=== PATIENT | female | born 1990 | race Caucasian/White ===

== ENCOUNTER 2020-05-22 16:07 | Emergency (ER) | payer OTHER ==
[~2020-05-22] VITALS: Ht 160 cm; Wt 56.8 kg
[2020-05-22 16:08] VITALS: BP 148/98
[2020-05-22 16:55] LABS: URINE HCG NEGATIVE (NEG)
[2020-05-22 17:03] LABS: URINE AMPHETAMINE SCREEN POSITIVE (Neg); URINE BARBITUATE SCREEN NEGATIVE (Neg); URINE BENZODIAZEPINES SCREEN NEGATIVE (Neg); URINE CANNABINOID SCREEN POSITIVE (Neg); URINE COCAINE SCREEN NEGATIVE (Neg); URINE METHADONE SCREEN NEGATIVE (Neg); URINE OPIATE SCREEN POSITIVE (Neg); URINE PHENCYCLIDINE SCREEN NEGATIVE (Neg)
== END 2020-05-22 17:53 | disposition home or self-care (01) ==
LOC: ER 16:08
DX: T40.1X1A Poisoning by heroin, accidental (unintentional), initial encounter (principal); F19.10 Other psychoactive substance abuse, uncomplicated; Z72.89 Other problems related to lifestyle; Z59.0 Homelessness; Z88.5 Allergy status to narcotic agent; Y92.89 Other specified places as the place of occurrence of the external cause
CPT/HCPCS: 80305; 81025; 93005; 99284

== ENCOUNTER 2021-04-23 10:36 | Emergency (ER) | payer SELFPAY ==
[~2021-04-23] VITALS: Ht 162.6 cm; Wt 65.0 kg
[2021-04-23 11:43] VITALS: BP 130/54
== END 2021-04-23 12:40 | disposition home or self-care (01) ==
LOC: ER 10:38
DX: S01.512A Laceration without foreign body of oral cavity, initial encounter (principal); M79.672 Pain in left foot; M79.671 Pain in right foot; Z59.00 Homelessness unspecified; Z88.5 Allergy status to narcotic agent; X58.XXXA Exposure to other specified factors, initial encounter; Y93.89 Activity, other specified; Y92.89 Other specified places as the place of occurrence of the external cause; Y99.9 Unspecified external cause status
CPT/HCPCS: 99281